=== PATIENT | male | born 1940 | race Caucasian/White ===

== ENCOUNTER 2016-09-25 18:21 | Observation (INO) | payer BC, MEDICARE ==
[2016-09-25] MEDS ORDERED: ASPIRIN 81 MG CHEWABLE TABLET PO ONE (18:42)
[2016-09-25 18:48] LABS: BASO % 0.8 % (0-6); EOS % 2.8 % (0-6); GRAN % 70.4 % (47-80); HEMATOCRIT 44.9 % (42.0-52.0); HEMOGLOBIN 14.9 gm/dl (14.0-18.0); LYMPH % 18.3 % (16-45); MEAN CELL VOLUME 94.3 fl (81-97); MEAN CORPUSCULAR HEMOGLOBIN 31.3 pg (27-33); MEAN CORPUSCULAR HGB CONC 33.2 g/dl (32-36); MEAN PLATELET VOLUME 9.7 fl (7.4-10.4); MONO % 7.7 % (0-9); PLATELET COUNT 224 K/uL (130-400); RED BLOOD COUNT 4.76 M/uL (4.40-5.70); RED CELL DISTRIBUTION WIDTH 14.4 % (11.5-14.5); WHITE BLOOD COUNT W/O DIFF 7.8 K/uL (4.2-12.2)
--- NOTE | 2016-09-25 18:48 | Emergency Department Record ---
History of Present Illness - General Chief Complaint: Chest Pain Stated Complaint: CHEST PAINS/BELGICA Time Seen by Provider: 09/25/16 18:41 Source: Patient Mode of Arrival: Ambulatory Limitations: No limitations - History of Present Illness Initial Comments: 76 yo male presents to ED with a CC of abdominal pain that has been resulting in chest pain and difficulty breathing symptoms for 1.5 weeks. Patient denies recent illness, fevers, chills, nausea, vomiting or change in stools. Patient does report history of CAD s/p CABG 3 years ago as well as COPD. Patient also reports history of CHF. Patient denies calf pain, swelling, or history of COPD. MD Complaint: Chest pain Onset/Timin -: Days(s) Onset: Other Pain Location: Substernal Pain Radiation: None Consistency: Intermittent Improves With: Nothing Worsens With: Nothing Treatments Prior to Arrival: None - Related Data Home Medications Medication Instructions Recorded Confirmed Last Taken Acetaminophen with Codeine 1 tab PO ASDIR PRN 09/25/16 09/25/16 Unknown [Tylenol with Codeine #3 Tablet] Amlodipine Besylate [Norvasc] 5 mg PO DAILY 09/25/16 09/25/16 Unknown Aspirin/Calcium Carbonate/Mag 325 mg PO DAILY 09/25/16 09/25/16 Unknown [Aspirin Buffered 325 mg Tab] Fluticasone/Vilanterol 100/25 1 puff INH RESP.Q12H 09/25/16 09/25/16 Unknown [Breo Ellipta 100-25 Mcg INH] Furosemide [Lasix] 20 mg PO DAILY 09/25/16 09/25/16 Unknown Latanoprost 0.005% Opth Nara 1 drop AFFEYE DAILY 09/25/16 09/25/16 Unknown [Xalatan] Magnesium Oxide [Mag Ox] 400 mg PO DAILY 09/25/16 09/25/16 Unknown Allergies Allergy/AdvReac Type Severity Reaction Status Date / Time carvedilol Allergy DIFFICULTY Verified 09/25/16 18:47 BREATHING celecoxib [From Celebrex] Allergy JOINT ACHES Verified 09/25/16 18:47 clonidine Allergy HIVES Verified 09/25/16 18:47 clopidogrel [From Plavix] Allergy PT UNSURE Verified 09/25/16 18:47 OF REACTION hydralazine Allergy HYPERSENSIT Verified 09/25/16 18:47 IVITY lisinopril Allergy DIFFICULTY Verified 09/25/16 18:48 BREATHING losartan Allergy JOINT ACHES Verified 09/25/16 18:47 naproxen Allergy JOINT ACHES Verified 09/25/16 18:47 nebivolol Allergy SWELLING Verified 09/25/16 18:47 (GENERAL) olmesartan Allergy JOINT ACHES Verified 09/25/16 18:47 rofecoxib [From Vioxx] Allergy RAPID Verified 09/25/16 18:47 HEART RATE ibuprofen AdvReac PT UNSURE Verified 09/25/16 18:47 OF REACTION Travel Screening - Travel/Exposure Within Last 30 Days Have you traveled within the last 30 days?: No Review of Systems Constitutional: Denies: Chills, Fever, Malaise, Night sweats Eyes: Denies: Eye discharge, Eye pain ENT: Denies: Congestion, Ear pain, Epistaxis Respiratory: Reports: Dyspnea. Denies: Cough Cardiovascular: Reports: Chest pain Endocrine: Denies: Fatigue, Heat or cold intolerance Gastrointestinal: Reports: Abdominal pain. Denies: Constipation, Diarrhea, Nausea, Vomiting Genitourinary: Denies: Incontinence, Retention Musculoskeletal: Denies: Arthralgia, Back pain, Gout, Joint swelling Skin: Denies: Bruising, Change in color Neurological: Denies: Abnormal gait, Confusion, Headache Psychiatric: Denies: Anxiety Hematological/Lymphatic: Denies: Anemia, Blood Clots Past Medical History - SOCIAL HISTORY Smoking Status: Former smoker Alcohol Use: None Drug Use: None - RESPIRATORY Hx Respiratory Disorders: Yes Hx COPD: Yes - CARDIOVASCULAR Hx Cardio Disorders: Yes Hx Abnormal EKG: Yes Hx CHF: Yes - NEURO Hx Neuro Disorders: No - GI Hx GI Disorders: No - Hx Genitourinary Disorders: No - ENDOCRINE Hx Endocrine Disorders: No - MUSCULOSKELETAL Hx Musculoskeletal Disorders: No - PSYCH Hx Psych Problems: No - HEMATOLOGY/ONCOLOGY Hx Hematology/Oncology Disorders: No Family Medical History Any Significant Family History?: No Physical Exam - General General Appearance: Alert, Oriented x3, Cooperative, Moderate distress Limitations: No limitations - Head Head exam: Atraumatic, Normocephalic, Normal inspection Head exam detail: negative: Abrasion, Contusion, South's sign, General tenderness, Hematoma, Laceration - Eye Eye exam: Other (Pinpoint pupil right, dialted pupil left (patient reports injury to the eye years ago s/p lens replacement)). negative: Conjunctival injection, Periorbital swelling, Periorbital tenderness, Scleral icterus - ENT Ear exam: negative: Auricular hematoma, Auricular trauma Nasal Exam: negative: Active bleeding, Discharge, Dried blood, Foreign body Mouth exam: negative: Drooling, Laceration, Muffled voice, Tongue elevation - Neck Neck exam: Normal inspection. negative: Meningismus, Tenderness - Respiratory Respiratory exam: Normal lung sounds bilaterally. negative: Respiratory distress, Rhonchi, Stridor, Wheezes - Cardiovascular Cardiovascular Exam: Regular rate, Normal rhythm, Normal heart sounds - GI/Abdominal GI/Abdominal exam: Soft. negative: Rebound, Rigid, Tenderness - Rectal Rectal exam: Deferred - exam: Deferred - Extremities Extremities exam: Normal inspection. negative: Calf tenderness, Pedal edema, Tenderness - Back Back exam: Denies: CVA tenderness (R), CVA tenderness (L) - Neurological Neurological exam: Alert, Normal gait, Oriented X3 - Psychiatric Psychiatric exam: Normal affect, Normal mood - Skin Skin exam: Normal color. negative: Abrasion Type of lesion: negative: abrasion Course Vital Signs 09/25/16 18:32 Temperature 98.2 F Pulse Rate 92 H Respiratory 24 Rate Blood Pressure 200/90 Pulse Ox 95 - Reevaluation(s) Reevaluation #1: 09/25/16 18:47 EKG: NSR 93 Indeterminate axis, normal intervals Nonspecific ST changes I, AVL, V5-V6 Reevaluation #2: 09/25/16 19:33 Labs reviewed, BNP 1100, labs are otherwise grossly unremarkable for an acute process. CTA pending at this time. Will continue to monitor. Reevaluation #3: 09/25/16 20:44 CTA Chest/Abdomen: No acute process, bilateral fat-containing inguinal hernias. Patient and family were updated on all results, will admit for further cardiac evaluation. Reevaluation #4: 09/25/16 21:02 Case was discussed with Dana STATON, will accept admission for CHF exacerbation and r/o RI. Medical Decision Making - Lab Data Result diagrams: 09/25/16 18:35 09/25/16 18:35 Disposition Disposition: Admit Clinical Impression: CHF (congestive heart failure) Qualifiers: Congestive heart failure type: unspecified congestive heart failure type Congestive heart failure chronicity: acute on chronic Qualified Code(s): I50.9 - Heart failure, unspecified Chest pain Qualifiers: Chest pain type: unspecified Qualified Code(s): R07.9 - Chest pain, unspecified Disposition: Still a Patient at [facility] Decision to Admit: Admit from ER Decision to Admit Date: 09/25/16 Decision to Admit Time: 21:04 Condition: (2) Stable Time of Disposition: 21:04 Quality - Quality Measures Quality Measures: N/A - Blood Pressure Screening Blood Pressure Classification: Pre-Hypertensive BP Reading Systolic Measurement: 165 Diastolic Measurement: 83 Screening for High Blood Pressure: < Pre-Hypertensive BP, F/U Documented > [ [id number]] Pre-Hypertensive Follow-up Interventions: Referral to alternative/primary care provider.
[2016-09-25 19:01] LABS: ALB/GLOB RATIO 1.1 (1.1-1.8); ALBUMIN 4.7 gm/dL (3.5-5.0); ALKALINE PHOSPHATASE 86 U/L (38-126); ALT/SGPT 58 U/L (21-72); ANION GAP 12.7 (7-16); AST/SGOT 45 U/L (17-59); BILIRUBIN,TOTAL 1.09 mg/dL (0.2-1.3); BLOOD UREA NITROGEN 19 mg/dL (9-20); CARBON DIOXIDE 27.3 mmol/L (22-30); CREATINE PHOSPHOKINASE 103 U/L (55-170); CREATININE 1.1 mg/dL (0.66-1.25); EST GLOMERULAR FILTRATION RATE > 60 ml/min; GLUCOSE,RANDOM 116 mg/dL (70-110)
[2016-09-25 19:13] LABS: CKMB 3.3 ug/L (0-6)
[2016-09-25 19:14] LABS: TROPONIN I < 0.012 ng/mL (0.00-0.034)
[2016-09-25] MEDS ORDERED: ACETAMINOPHEN W/ CODEINE 300MG/30MG TABLET PO PRN ×3 (22:41→23:15)
[2016-09-25] MEDS ORDERED: LATANOPROST 0.005% OPTH SOLUTION 2.5ML BOTTLE OPTH SCH (23:20)
[2016-09-25] MEDS ORDERED: DIPHENHYDRAMINE HCL 25 MG CAPSULE PO PRN (23:32)
--- NOTE | 2016-09-26 07:35 | History & Physical ---
History of Present Illness - Date of Service Date of Service for History & Physical: 09/26/16 - History of Present Illness Admitting Diagnosis: abdominal pain History of Present Illness: 76yo male with CC of abdominal cramping. He has a history of severe coronary artery disease, peripheral artery disease, CABG x3 3 years ago, CHF, HTN, COPD and arthritis. Patient presented to the ED with chronic abdominal cramping. States this started back in March of this year and has been getting steadily worse since that time. Stated the last 1-2 weeks the cramping has been significant and he says the pain caused him to feel short of breath at times and felt like the pain radiated upwards across his chest. He decided to come to the ED because he felt it was time to get this figured out. While in the ED, patient had an EKG which showed changes consistent with old infarcts. No previous available for comparison. 1st set of cardiac enzymes was wnl range. CBC and CMP were unremarkable. His BNP was noted to be 1100. no pedal edema on exam. he underwent Chest CT which showed severe calcifications in the coronary arteries and an area of consolidation in the RLL that could be atelectasis vs infiltrate. He also underwent CT abdomen and pelvis which showed significant aortiliac calcifications but no acute process. Patient was admitted for serial enzymes. 09/26/16- patient states he is feeling much better. He says the generalized abdominal cramping has improved significantly. His shortness of breath and chest discomfort resolved last evening and he has had no further episodes. He denies headache, numbness, tingling, weakness, cough, nausea/vomiting, diarrhea or constipation. Patient states he is feeling fine and is ready to go home. He states "I was ready to go this morning" after echo was completed. Patient currently follows with Dr. Mccray for primary care but is not very compliant. He has not seen his retail furniture sales Dr. Mayo since February 2015. He has low health literacy and understanding of his medical conditions. He reports not wanting to take medications in the past because he didn't feel he needed them. prefers to use homeopathic medications for his cholesterol and refuses to take a statin. Feels his amlodopine is causing his abdominal cramping because he read that in the package insert. He has been on the amlodopine for about 9 months now. Could not tolerate ACEI/ARBs due to joint pains. He thinks his last stress test was before his shoulder surgery about 2 years ago. He cannot recall last time he had echo done. He last saw his manufacturer's service representative Dr. Healy (Bang) in May when she "cleaned out my right lung." He states he had a procedure done to remove mucus from the right lower portion of his lung. He says he has follow up with her again in November. he does report baseline mucus production but has not had increased cough, shortness of breath, fever or fatigue. Travel Screening - Travel/Exposure Within Last 30 Days Have you traveled within the last 30 days?: No - Travel/Exposure Within Last Year Have you traveled outside the [place] in the last year?: No - Additonal Travel Details Have you been exposed to anyone with a communicable illness?: No - Travel Symptoms Symptom Screening: None Review of Systems Constitutional: Denies: Chills, Fever, Malaise, Night sweats Eyes: Denies: Eye discharge, Eye pain ENT: Denies: Congestion, Ear pain, Epistaxis Respiratory: Denies: Cough, Dyspnea Cardiovascular: Denies: Chest pain Endocrine: Denies: Fatigue, Heat or cold intolerance Gastrointestinal: Reports: Abdominal pain (cramping, diffuse). Denies: Constipation, Diarrhea, Nausea, Vomiting Genitourinary: Denies: Incontinence, Retention Musculoskeletal: Denies: Arthralgia, Back pain, Gout, Joint swelling Skin: Denies: Bruising, Change in color Neurological: Denies: Abnormal gait, Confusion, Headache Psychiatric: Denies: Anxiety Hematological/Lymphatic: Denies: Anemia, Blood Clots Past Medical History - SOCIAL HISTORY Smoking Status: Former smoker Alcohol Use: None Drug Use: None - RESPIRATORY Hx Respiratory Disorders: Yes Hx COPD: Yes - CARDIOVASCULAR Hx Cardio Disorders: Yes Hx Abnormal EKG: Yes Hx CHF: Yes - NEURO Hx Neuro Disorders: No - GI Hx GI Disorders: No - Hx Genitourinary Disorders: No - ENDOCRINE Hx Endocrine Disorders: No - MUSCULOSKELETAL Hx Musculoskeletal Disorders: No - PSYCH Hx Psych Problems: No - HEMATOLOGY/ONCOLOGY Hx Hematology/Oncology Disorders: No Family Medical History Any Significant Family History?: No H&P Meds/Allergies - Allergies Allergies: Allergies Allergy/AdvReac Type Severity Reaction Status Date / Time carvedilol Allergy DIFFICULTY Verified 09/25/16 18:47 BREATHING celecoxib [From Celebrex] Allergy JOINT ACHES Verified 09/25/16 18:47 clonidine Allergy HIVES Verified 09/25/16 18:47 clopidogrel [From Plavix] Allergy PT UNSURE Verified 09/25/16 18:47 OF REACTION hydralazine Allergy HYPERSENSIT Verified 09/25/16 18:47 IVITY lisinopril Allergy DIFFICULTY Verified 09/25/16 18:48 BREATHING losartan Allergy JOINT ACHES Verified 09/25/16 18:47 naproxen Allergy JOINT ACHES Verified 09/25/16 18:47 nebivolol Allergy SWELLING Verified 09/25/16 18:47 (GENERAL) olmesartan Allergy JOINT ACHES Verified 09/25/16 18:47 rofecoxib [From Vioxx] Allergy RAPID Verified 09/25/16 18:47 HEART RATE ibuprofen AdvReac PT UNSURE Verified 09/25/16 18:47 OF REACTION - Home Medications Home Medications Medication Instructions Recorded Confirmed Last Taken Acetaminophen with Codeine 1 tab PO ASDIR PRN 09/25/16 09/25/16 Unknown [Tylenol with Codeine #3 Tablet] Amlodipine Besylate [Norvasc] 5 mg PO DAILY 09/25/16 09/25/16 Unknown Aspirin/Calcium Carbonate/Mag 325 mg PO DAILY 09/25/16 09/25/16 Unknown [Aspirin Buffered 325 mg Tab] Fluticasone/Vilanterol 100/25 1 puff INH RESP.Q12H 09/25/16 09/25/16 Unknown [Breo Ellipta 100-25 Mcg INH] Furosemide [Lasix] 20 mg PO DAILY 09/25/16 09/25/16 Unknown Latanoprost 0.005% Opth Nara 1 drop AFFEYE DAILY 09/25/16 09/25/16 Unknown [Xalatan] Magnesium Oxide [Mag Ox] 400 mg PO DAILY 09/25/16 09/25/16 Unknown - Active Medications Active Medications: Current Medications Acetaminophen/Codeine Phosphate (Tylenol #3) 1 udtab PO Q4H PRN PRN Reason: Pain - Mild (1-4) Last Admin: 09/25/16 23:56 Dose: 1 udtab Acetaminophen/Codeine Phosphate (Tylenol #3) 2 udtab PO Q4H PRN PRN Reason: Pain - Moderate (5-7) Last Admin: 09/26/16 04:42 Dose: 2 udtab Aspirin (Ecotrin (Ec)) 325 mg PO DAILY [facility] Calcium Carbonate/Glycine (Tums) 500 mg PO DAILY [facility] Diphenhydramine HCl (Benadryl Capsule) 25 mg PO Q6H PRN PRN Reason: SLEEP Last Admin: 09/25/16 23:53 Dose: 25 mg Furosemide (Lasix) 20 mg PO DAILY [facility] Latanoprost (Xalatan) 1 drop OPTH QHS GRZEGORZ Last Admin: 09/25/16 23:26 Dose: 1 drop Magnesium Oxide (Mag Ox) 400 mg PO DAILY [facility] Physical Exam - Vital Signs Vital Signs: Vital Signs - Last 24 Hrs Temp Pulse Pulse Resp BP BP Pulse Ox 09/26/16 06:00 98.0 F 67 18 151/79 95 09/26/16 02:00 97.8 F 83 16 173/88 97 09/25/16 22:41 98.4 F 83 20 179/104 96 09/25/16 22:09 74 22 165/83 94 L - General General Appearance: Alert, Oriented x3, Cooperative, No acute distress Limitations: No limitations - Head Head exam: Atraumatic, Normocephalic, Normal inspection Head exam detail: negative: Abrasion, Contusion, South's sign, General tenderness, Hematoma, Laceration - Eye Eye exam: Other (Pinpoint pupil right, dialted pupil left (patient reports injury to the eye years ago s/p lens replacement)). negative: Conjunctival injection, Periorbital swelling, Periorbital tenderness, Scleral icterus - ENT Ear exam: negative: Auricular hematoma, Auricular trauma Nasal Exam: negative: Active bleeding, Discharge, Dried blood, Foreign body Mouth exam: negative: Drooling, Laceration, Muffled voice, Tongue elevation - Neck Neck exam: Normal inspection. negative: Meningismus, Tenderness - Respiratory Respiratory exam: Normal lung sounds bilaterally. negative: Accessory muscle use, Respiratory distress, Rhonchi, Stridor, Wheezes - Cardiovascular Cardiovascular Exam: Regular rate, Normal rhythm, Normal heart sounds - GI/Abdominal GI/Abdominal exam: Soft. negative: Rebound, Rigid, Tenderness - Rectal Rectal exam: Deferred - exam: Deferred - Extremities Extremities exam: Normal inspection. negative: Calf tenderness, Pedal edema, Tenderness - Back Back exam: Denies: CVA tenderness (R), CVA tenderness (L) - Neurological Neurological exam: Alert, Normal gait, Oriented X3 - Psychiatric Psychiatric exam: Normal affect, Normal mood - Skin Skin exam: Normal color. negative: Abrasion Type of lesion: negative: abrasion Results - Labs Result Diagrams: 09/26/16 08:13 09/26/16 08:13 Labs Last 24 Hours: Laboratory Results - last 24 hr 09/26/16 03:05 Troponin I 0.012 - Imaging and Cardiology CT scan - chest Status: Report reviewed (severe CAD and RLL consolidation) CT scan - abdomen Status: Report reviewed (no acute process) VTE H&P Assessment - Risk for VTE Risk for VTE: Yes Risk Level: High Risk Assessment Date: 09/26/16 Risk Assessment Time: 21:40 VTE Orders Placed or Will Be Placed: Yes Plan - Detailed Diagnosis and Plan (1) Abdominal pain Status: Acute Qualifiers: Abdominal location: generalized Qualified Code(s): R10.84 - Generalized abdominal pain Base Code: R10.9 - UNSPECIFIED ABDOMINAL PAIN Comment: 09/26/16- Improved. generalized abdominal cramping occurring after eating x7 months. CMP was unremarkable. Abdomen/pelvis CT showed no acute process, but did reveal significant aortilliac calcifications.This pain culd possible be related to abdominal angina with patient's known CAD and PAD. Patient is currently tolerating full diet with regular bowel movements and has not needed pain control. all three sets of CE returned wnl. EKG remains unchanged. -will plan to discharge home today. Patient has follow up scheduled with Dr. Mccray on sunday10/02/16. -he will be scheduled with [facility] at [facility] specialty clinic ja. He will likely need referral to vascular surgery based on cardiology evaluation -counseled patient on reasons to return to the Ed including new/worsening symptoms such as severe abdominal pain, inability to tolerate po fluids, change in bowel habits, fever, or chest pain. Daughter and patient voiced their understanding. (2) Coronary arteriosclerosis Status: Acute Base Code: I25.10 - ATHSCL HEART DISEASE OF [place] CORONARY ARTERY W/O ANG PCTRS Comment: 09/26/16- CT chest shows severe CAD. patient reports being told this information many years ago. He has not been compliant with cardiology follow up or medication recommendations. No evidence of acute coronary syndrome at this time, but I counseled patient x10 minutes on importance of close follow up [facility]ology and medication adherence for risk reduction. -Daughter agrees to take patient to cardiology follow up appointment -will get him scheduled with specialty clinic here at [facility] with [facility] cardiology. Nursing to call and schedule and will contact patient and/or daughter (3) CHF (congestive heart failure) Status: Acute Qualifiers: Congestive heart failure type: unspecified congestive heart failure type Congestive heart failure chronicity: acute on chronic Qualified Code(s): I50.9 - Heart failure, unspecified Base Code: I50.9 - HEART FAILURE, UNSPECIFIED Comment: 09/26/16- Patient underwent echocardiogram today which showed EF of 61% with normal wall movement and aortic stenosis. BNP was elevated at [address] chest showed no evidence of fluid overload and patient is currently asymptomatic with no pedal edema or shortness of breath. -patient understands he needs close follow up [facility] cardiology as it has been 1.5 years since last seen. [facility] -continue lasix 20mg po daily. potassium wnl range -patient refuses ACEI/ARb stating he had adverse reaction to these medications -patient refuses statin due to adverse reactions (4) Atelectasis Status: Acute Base Code: J98.11 - ATELECTASIS Comment: 09/26/16- CT chest showed consolidation in the RLL consistent with atelectasis vs infiltrate. Clinically, patient is without symptoms of pneumonia. he denies increased cough or sputum production from baseline. no fevers, chills, wbc count remains wnl. He follows with pulmonlogy, Dr. Healy, at [facility] and seems to have undergone routine bronchoscopy with suction for this in May. He currently has appointment with Dr. Healy in november. -Daughter will call her office to see if patient can have appointment moved up or be placed on cancellation list. -counseled patient x5 minutes on signs/symptoms of pneumonia and that he is to return to ED at any time if he begins to experience these. Both patient and daughter voiced their understanding. -patient will continue to use incentive spirometer that he has at home (5) Full code status Status: Acute Base Code: Z78.9 - OTHER SPECIFIED HEALTH STATUS Comment: 09/26- patient is full code (6) DVT prophylaxis Status: Acute Base Code: [id number] - Comment: 09/26/16- patient high risk -will add lvoenox 40mg sq daily
--- NOTE | 2016-09-26 07:47 | CT SCAN REPORT ---
EXAM: CHEST CT WITH IV CONTRAST HISTORY: ACUTE DIFFICULTY BREATHING FOR ONE AND A HALF WEEKS. HISTORY OF CORONARY ARTERY BYPASS. TECHNIQUE: Contiguous axial images from the thoracic inlet to the upper abdomen were obtained after the uneventful intravenous administration of 100 ml of Omnipaque 300. Comparison: Chest x-ray 10/17/07. FINDINGS: There is consolidative change in the right lower lobe posteriorly measuring up to 7.4 x 3.0 cm in the coronal plane. Calcified granulomata in the left upper lobe. The left lung is grossly clear. No pleural effusion. The central airways are patent. The heart is moderately enlarged, but there is no pericardial effusion. Severe coronary artery calcification. No enlarged lymph nodes in the thorax. Moderate calcification of the thoracic aorta with no thoracic aortic dissection. There is chronic elevation of the right hemidiaphragm. Decreased attenuation throughout the liver consistent with fatty infiltration. No fractures. No lytic or blastic osseous lesion. IMPRESSION: 1. CONSOLIDATIVE CHANGE IN THE RIGHT LOWER LOBE MEASURING UP TO 7 CM WHICH COULD RELATE TO ATELECTASIS OR PNEUMONIA. 2. CARDIOMEGALY WITH SEVERE CORONARY ARTERY CALCIFICATION. 3. OLD GRANULOMATOUS DISEASE. 4. ELEVATED RIGHT HEMIDIAPHRAGM. ADDENDUM: There is an 8 mm noncalcified nodule as well in the right upper lobe. If there are no studies documenting long term care pharmacist stability, I would recommend a six month follow-up chest CT. JOB NUMBER: [id number] [facility]
--- NOTE | 2016-09-26 07:57 | CT SCAN REPORT ---
EXAM: ABDOMEN AND PELVIS CT WITH IV CONTRAST HISTORY: GENERALIZED ABDOMINAL CRAMPING, CHEST PAIN FOR TEN DAYS. TECHNIQUE: Contiguous axial images from the lung bases to the symphysis pubis were obtained after the uneventful intravenous administration of 100 ml of Omnipaque 300. Comparison: Abdomen and pelvis CT 06/23/11. FINDINGS: Focal consolidative change in the right lower lobe with air bronchograms measuring up to 7 cm. Elevated right hemidiaphragm. Decreased attenuation throughout the liver consistent with steatosis. The spleen is unremarkable. There are unilocular cysts within the kidneys bilaterally the largest in the interpolar region measuring 2.8 cm. Renal vascular calcification. The adrenals and pancreas are normal. The gallbladder is normal. The visualized loops of small and large bowel are of normal caliber. No wall thickening. Moderate fecal material throughout the colon. Normal appendix. There is severe aortoiliac calcification. No free intraperitoneal fluid or adenopathy. The prostate gland is mildly enlarged with coarse central calcifications. There is a small fat containing inguinal hernia. The osseous structures reveal no lytic or blastic lesion. IMPRESSION: 1. NO ACUTE PROCESS OF THE ABDOMEN OR PELVIS. 2. SEVERE AORTIC CALCIFICATION. 3. HEPATIC STEATOSIS. 4. BENIGN BOSNIAK TYPE 1 RENAL CYSTS. 5. SMALL FAT CONTAINING INGUINAL HERNIAS. 6. MILD ENLARGEMENT OF THE PROSTATE GLAND LIKELY DUE TO BPH. J[facility]BER: [id number] [facility]
[2016-09-26 08:29] LABS: BASO % 0.5 % (0-6); EOS % 3.2 % (0-6); GRAN % 70.1 % (47-80); HEMATOCRIT 41.4 % (42.0-52.0); HEMOGLOBIN 13.7 gm/dl (14.0-18.0); LYMPH % 16.1 % (16-45); MEAN CELL VOLUME 96.3 fl (81-97); MEAN CORPUSCULAR HGB CONC 33.1 g/dl (32-36); MEAN PLATELET VOLUME 9.8 fl (7.4-10.4); MONO % 10.1 % (0-9); PLATELET COUNT 190 K/uL (130-400); RED CELL DISTRIBUTION WIDTH 14.2 % (11.5-14.5); WHITE BLOOD COUNT W/O DIFF 6.6 K/uL (4.2-12.2)
[2016-09-26 08:30] LABS: MEAN CORPUSCULAR HEMOGLOBIN 31.8 pg (27-33)
[2016-09-26 08:39] LABS: ALB/GLOB RATIO 1.1 (1.1-1.8); ALKALINE PHOSPHATASE 66 U/L (38-126); ALT/SGPT 55 U/L (21-72); ANION GAP 8.5 (7-16); AST/SGOT 30 U/L (17-59); BILIRUBIN,TOTAL 0.94 mg/dL (0.2-1.3); BLOOD UREA NITROGEN 19 mg/dL (9-20); CARBON DIOXIDE 30.5 mmol/L (22-30); CREATININE 1.1 mg/dL (0.66-1.25); EST GLOMERULAR FILTRATION RATE > 60 ml/min; GLUCOSE,RANDOM 111 mg/dL (70-110); TOTAL PROTEIN 7.6 gm/dL (6.3-8.2)
[2016-09-26] MEDS ORDERED: CALCIUM CARBONATE 500 MG TAB.CHEW PO SCH (10:00)
[2016-09-26] MEDS ORDERED: MAGNESIUM OXIDE 400 MG TABLET PO SCH (10:00)
[2016-09-26] MEDS ORDERED: ASPIRIN 325 MG TAB ENTERIC-COATED PO SCH (10:00)
[2016-09-26] MEDS ORDERED: BREO (FLUTICASONE/VILANTEROL) 100MCG/25MCG INHALER INH SCH (10:00)
[2016-09-26] MEDS ORDERED: LATANOPROST 0.005% OPTH SOLUTION 2.5ML BOTTLE OPTH SCH (10:00)
[2016-09-26] MEDS ORDERED: FUROSEMIDE 20 MG TABLET PO SCH (10:00)
[2016-09-26] MEDS ORDERED: AMLODIPINE BESYLATE 5MG TAB PO SCH (10:30)
[2016-09-26] MEDS ORDERED: FLUTICASONE/SALMETEROL 250/50 DISKUS INH SCH (11:26)
--- NOTE | 2016-09-26 17:25 | Discharge Summary ---
Providers Discharge Summary Date: 09/26/16 Date of admission: 09/25/16 22:03 Expected Date of Discharge: 09/26/16 Attending physician: LEILA DUCKWORTH Primary care physician: ANTHONY MCCRAY M.D. Physical Exam - Vital Signs Vital Signs: Vital Signs - Last 24 Hrs Temp Pulse Pulse Pulse Resp BP BP 09/26/16 14:00 84 16 158/93 09/26/16 09:55 97 F L 83 16 183/86 09/26/16 09:00 83 100 H 16 09/26/16 06:00 98.0 F 67 18 151/79 09/26/16 02:00 97.8 F 83 16 173/88 09/25/16 22:41 98.4 F 83 20 179/104 09/25/16 22:09 74 22 165/83 Pulse Ox 09/26/16 14:00 96 09/26/16 09:55 100 09/26/16 09:00 09/26/16 06:00 95 09/26/16 02:00 97 09/25/16 22:41 96 09/25/16 22:09 94 L - General General Appearance: Alert, Oriented x3, Cooperative, Moderate distress Limitations: No limitations - Head Head exam: Atraumatic, Normocephalic, Normal inspection Head exam detail: negative: Abrasion, Contusion, South's sign, General tenderness, Hematoma, Laceration - Eye Eye exam: Other (Pinpoint pupil right, dialted pupil left (patient reports injury to the eye years ago s/p lens replacement)). negative: Conjunctival injection, Periorbital swelling, Periorbital tenderness, Scleral icterus - ENT Ear exam: negative: Auricular hematoma, Auricular trauma Nasal Exam: negative: Active bleeding, Discharge, Dried blood, Foreign body Mouth exam: negative: Drooling, Laceration, Muffled voice, Tongue elevation - Neck Neck exam: Normal inspection. negative: Meningismus, Tenderness - Respiratory Respiratory exam: Normal lung sounds bilaterally. negative: Respiratory distress, Rhonchi, Stridor, Wheezes - Cardiovascular Cardiovascular Exam: Regular rate, Normal rhythm, Normal heart sounds - GI/Abdominal GI/Abdominal exam: Soft. negative: Rebound, Rigid, Tenderness - Rectal Rectal exam: Deferred - exam: Deferred - Extremities Extremities exam: Normal inspection. negative: Calf tenderness, Pedal edema, Tenderness - Back Back exam: Denies: CVA tenderness (R), CVA tenderness (L) - Neurological Neurological exam: Alert, Normal gait, Oriented X3 - Psychiatric Psychiatric exam: Normal affect, Normal mood - Skin Skin exam: Normal color. negative: Abrasion Type of lesion: negative: abrasion Hospitalization - Hospitalization Admission Diagnosis: Chest pain. Acute on Chronic CHF - Problem List/Discharge Diagnosis (1) Abdominal pain Status: Acute Discharge Diagnosis: Abdominal location: generalized Qualified Code(s): R10.84 - Generalized abdominal pain Base Code: R10.9 - UNSPECIFIED ABDOMINAL PAIN Comment: 09/26/16- Improved. generalized abdominal cramping occurring after eating x7 months. CMP was unremarkable. Abdomen/pelvis CT showed no acute process, but did reveal significant aortilliac calcifications.This pain culd possible be related to abdominal angina with patient's known CAD and PAD. Patient is currently tolerating full diet with regular bowel movements and has not needed pain control. all three sets of CE returned wnl. EKG remains unchanged. -will plan to discharge home today. Patient has follow up scheduled with Dr. Mccray on sunday10/02/16. -he will be scheduled with [facility] at [facility] specialty clinic [facility]. He will likely need referral to vascular surgery based on cardiology evaluation -counseled patient on reasons to return to the Ed including new/worsening symptoms such as severe abdominal pain, inability to tolerate po fluids, change in bowel habits, fever, or chest pain. Daughter and patient voiced their understanding. (2) Coronary arteriosclerosis Status: Acute Base Code: I25.10 - ATHSCL HEART DISEASE OF [place] CORONARY ARTERY W/O ANG PCTRS Comment: 09/26/16- CT chest shows severe CAD. patient reports being told this information many years ago. He has not been compliant with cardiology follow up or medication recommendations. No evidence of acute coronary syndrome at this time, but I counseled patient x10 minutes on importance of close follow up [facility] cardiology and medication adherence for risk reduction. -Daughter agrees to take patient to cardiology follow up appointment -will get him scheduled with specialty clinic here at [facility] with [facility]. Nursing to call and schedule and will contact patient and/or daughter (3) CHF (congestive heart failure) Status: Acute Discharge Diagnosis: Congestive heart failure type: unspecified congestive heart failure type Congestive heart failure chronicity: acute on chronic Qualified Code(s): I50.9 - Heart failure, unspecified Base Code: I50.9 - HEART FAILURE, UNSPECIFIED Comment: 09/26/16- Patient underwent echocardiogram today which showed EF of 61% with normal wall movement and aortic stenosis. BNP was elevated at [address] chest showed no evidence of fluid overload and patient is currently asymptomatic with no pedal edema or shortness of breath. -patient understands he needs close follow up [facility] cardiology as it has been 1.5 years since last seen. Nursing will schedule him [facility] specialty clinic ja. -continue lasix 20mg po daily. potassium wnl range -patient refuses ACEI/ARb stating he had adverse reaction to these medications -patient refuses statin due to adverse reactions (4) Atelectasis Status: Acute Base Code: J98.11 - ATELECTASIS Comment: 09/26/16- CT chest showed consolidation in the RLL consistent with atelectasis vs infiltrate. Clinically, patient is without symptoms of pneumonia. he denies increased cough or sputum production from baseline. no fevers, chills, wbc count remains wnl. He follows with pulmonlogy, Dr. Healy, at [facility] and seems to have undergone routine bronchoscopy with suction for this in May. He currently has appointment with Dr. Healy in november. -Daughter will call her office to see if patient can have appointment moved up or be placed on cancellation list. -counseled patient x5 minutes on signs/symptoms of pneumonia and that he is to return to ED at any time if he begins to experience these. Both patient and daughter voiced their understanding. -patient will continue to use incentive spirometer that he has at home (5) DVT prophylaxis Status: Acute Base Code: [id number] - Comment: 09/26/16- patient high risk -will add lvoenox 40mg sq daily (6) Full code status Status: Acute Base Code: Z78.9 - OTHER SPECIFIED HEALTH STATUS Comment: 09/26- patient is full code - Hospitalization Course Disposition: Home, Self-Care Hospital Course: 76yo male with CC of abdominal cramping. He has a history of severe coronary artery disease, peripheral artery disease, CABG x3 3 years ago, CHF, HTN, COPD and arthritis. Patient presented to the ED with chronic abdominal cramping. States this started back in March of this year and has been getting steadily worse since that time. Stated the last 1-2 weeks the cramping has been significant and he says the pain caused him to feel short of breath at times and felt like the pain radiated upwards across his chest. He decided to come to the ED because he felt it was time to get this figured out. While in the ED, patient had an EKG which showed changes consistent with old infarcts. No previous available for comparison. 1st set of cardiac enzymes was wnl range. CBC and CMP were unremarkable. His BNP was noted to be 1100. no pedal edema on exam. he underwent Chest CT which showed severe calcifications in the coronary arteries and an area of consolidation in the RLL that could be atelectasis vs infiltrate. He also underwent CT abdomen and pelvis which showed significant aortiliac calcifications but no acute process. Patient was admitted for serial enzymes. 09/26/16- patient states he is feeling much better. He says the generalized abdominal cramping has improved significantly. His shortness of breath and chest discomfort resolved last evening and he has had no further episodes. He denies headache, numbness, tingling, weakness, cough, nausea/vomiting, diarrhea or constipation. Patient currently follows with Dr. Mccray for primary care but is not very compliant. He has not seen his jet wiper Dr. Mayo since February 2015. He has low health literacy and understanding of his medical conditions. He reports not wanting to take medications in the past because he didn't feel he needed them. prefers to use homeopathic medications for his cholesterol and refuses to take a statin. Feels his amlodopine is causing his abdominal cramping because he read that in the package insert. He has been on the amlodopine for about 9 months now. Could not tolerate ACEI/ARBs due to joint pains. He thinks his last stress test was before his shoulder surgery about 2 years ago. He cannot recall last time he had echo done. He last saw his back end developer Dr. Healy (Bang) in May when she "cleaned out my right lung." He states he had a procedure done to remove mucus from the right lower portion of his lung. He says he has follow up with her again in November. he does report baseline mucus production but has not had increased cough, shortness of breath, fever or fatigue. Abnormal Labs: Abnormal Lab Results 09/26/16 09/26/16 Range/Units 08:13 08:13 RBC 4.30 L (4.40-5.70) M/uL Hgb 13.7 L (14.0-18.0) gm/dl Hct 41.4 L (42.0-52.0) % Monocytes % 10.1 H (0-9) % Carbon Dioxide 30.5 H (22-30) mmol/L Random Glucose 111 H (70-110) mg/dL Condition at Discharge: (2) Stable Discharge Medications - Discharge Medications Home Medications: Ambulatory Orders Acetaminophen with Codeine [Tylenol with Codeine #3 Tablet] 1 tab PO ASDIR PRN 09/25/16 [Last Taken Unknown] Amlodipine Besylate [Norvasc] 5 mg PO DAILY 09/25/16 [Last Taken Unknown] Aspirin/Calcium Carbonate/Mag [Aspirin Buffered 325 mg Tab] 325 mg PO DAILY [Last Taken Unknown] Fluticasone/Vilanterol 100/25 [Breo Ellipta 100-25 Mcg INH] 1 puff INH RESP.Q12H 09/25/16 [Last Taken Unknown] Furosemide [Lasix] 20 mg PO DAILY 09/25/16 [Last Taken Unknown] Latanoprost 0.005% Opth Nara [Xalatan] 1 drop AFFEYE DAILY 09/25/16 [Last Taken Unknown] Magnesium Oxide [Mag Ox] 400 mg PO DAILY 09/25/16 [Last Taken Unknown] Discharge Plan - Discharge Instructions Activity at Discharge: Resume Usual Activities As Tolerated Instructions: Chest Pain (DC) Additional Instructions: Appointment with Dr. Mccray SundayOctober 02, 4:00 PM. We will contact you tomorrow with cardiology appointment date and time Please call with any questions or concerns Return to ED with any new or worsening concerns
[2016-09-27] MEDS ORDERED: FLUTICASONE/SALMETEROL 250/50 DISKUS INH SCH (06:00)
== END 2016-09-26 17:54 | disposition home or self-care (01) ==
LOC: ER 18:21 → MEDSURG 22:03
PROVIDERS: ADMIT Family Medicine; ATTEND Family Medicine
DX: R10.84 Generalized abdominal pain (principal); I50.9 Heart failure, unspecified; I25.10 Atherosclerotic heart disease of native coronary artery without angina pectoris; J98.11 Atelectasis; I10 Essential (primary) hypertension; J44.9 Chronic obstructive pulmonary disease, unspecified
CPT/HCPCS: 93041; 99285 ×2; 94760; 82550; 85025 ×2; 82553; 84484 ×2; 80053 ×2; 83880; 71260; 74177; 93005 ×2; 93010 ×2; G0378 ×2; Q9967; 99220

== ENCOUNTER 2017-07-20 13:27 | Emergency (ER) | payer MEDICARE ==
--- NOTE | 2017-07-20 13:46 | Emergency Department Record ---
History of Present Illness - General Chief complaint: Extremity Problem Stated complaint: SWELLING ON BOTH FEET AND TOENAIL COMING OFF Time Seen by Provider: 07/20/17 13:33 Source: Patient Mode of Arrival: his own 4 wheel walker - History of Present Illness Initial comments: 77 yo male presents with a concern about his right great toe. He states it has been red, painful, and draining over the last 2 weeks. No fever. No spreading redness. He has had mild bilateral feet swelling for a few weeks as well. He has not seen his doctor (Mahendra) in many months. The right great toe has chronically been thickened. The redness is new. No numbness or coolness. He denies chest pain or cough. No shortness of breath. 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 The right great toe nail is loose and nearly off. Onset/Timin -: Week(s) Location: Bilateral, Foot Severity scale (1-10): 10 Quality: Sharp Consistency: Intermittent Improves with: Nothing Worsens with: Nothing Associated Symptoms: Arthralgias - Related Data Home Medications Medication Instructions Recorded Confirmed Last Taken Fexofenadine HCl [Mucinex Allergy] 180 mg PO DAILY 07/20/17 07/20/17 1 Day Ago ~07/19/17 Fluticasone/Salmeterol [Advair 1 each IH BID 07/20/17 07/20/17 1 Day Ago 250-50 Diskus] ~07/19/17 Previous Rx's Medication Instructions Recorded Cephalexin [Keflex] 500 mg PO TID #21 cap 07/20/17 Allergies Allergy/AdvReac Type Severity Reaction Status Date / Time carvedilol Allergy DIFFICULTY Verified 07/20/17 13:41 BREATHING celecoxib [From Celebrex] Allergy JOINT ACHES Verified 07/20/17 13:41 clonidine Allergy HIVES Verified 07/20/17 13:41 clopidogrel [From Plavix] Allergy PT UNSURE Verified 07/20/17 13:41 OF REACTION hydralazine Allergy HYPERSENSIT Verified 07/20/17 13:41 IVITY lisinopril Allergy DIFFICULTY Verified 07/20/17 13:41 BREATHING losartan Allergy JOINT ACHES Verified 07/20/17 13:41 naproxen Allergy JOINT ACHES Verified 07/20/17 13:41 nebivolol Allergy SWELLING Verified 07/20/17 13:41 (GENERAL) olmesartan Allergy JOINT ACHES Verified 07/20/17 13:41 rofecoxib [From Vioxx] Allergy RAPID Verified 07/20/17 13:41 HEART RATE ibuprofen AdvReac PT UNSURE Verified 07/20/17 13:41 OF REACTION Travel Screening - Travel/Exposure Within Last 30 Days Have you traveled within the last 30 days?: No - Travel/Exposure Within Last Year Have you traveled outside the [place] in the last year?: No - Additonal Travel Details Have you been exposed to anyone with a communicable illness?: No - Travel Symptoms Symptom Screening: None Review of Systems Constitutional: Denies: Chills, Fever, Weakness Eyes: Denies: Eye discharge ENT: Denies: Congestion, Throat pain Respiratory: Denies: Cough, Dyspnea, Hemoptysis, Stridor, Wheezes Cardiovascular: Denies: Chest pain, Palpitations, Syncope Endocrine: Denies: Fatigue, Polydipsia, Polyuria Gastrointestinal: Denies: Abdominal pain, Diarrhea, Nausea, Vomiting Genitourinary: Denies: Dysuria, Frequency, Hematuria Musculoskeletal: Reports: As per HPI, Arthralgia, Joint swelling. Denies: Back pain, Myalgia Skin: Reports: As per HPI, Change in color. Denies: Bruising, Rash Neurological: Denies: Headache, Numbness, Weakness Psychiatric: Denies: Anxiety Hematological/Lymphatic: Denies: Easy bleeding, Easy bruising, Swollen glands Past Medical History - SOCIAL HISTORY Smoking Status: Former smoker Alcohol Use: None Drug Use: None - RESPIRATORY Hx Respiratory Disorders: Yes Hx COPD: Yes - CARDIOVASCULAR Hx Cardio Disorders: Yes Hx Abnormal EKG: Yes Hx CHF: Yes - NEURO Hx Neuro Disorders: No - GI Hx GI Disorders: No - Hx Genitourinary Disorders: No - ENDOCRINE Hx Endocrine Disorders: No - MUSCULOSKELETAL Hx Musculoskeletal Disorders: No - PSYCH Hx Psych Problems: No - HEMATOLOGY/ONCOLOGY Hx Hematology/Oncology Disorders: No Family Medical History Any Significant Family History?: Yes Physical Exam - General General Appearance: Alert, Oriented x3, Cooperative, No acute distress Limitations: No limitations - Head Head exam: Normal inspection - Eye Eye exam: Normal appearance. negative: Conjunctival injection - ENT ENT exam: Normal exam, Mucous membranes moist Ear exam: Normal external inspection Nasal Exam: Normal inspection Mouth exam: Normal external inspection - Neck Neck exam: Normal inspection, Full ROM. negative: Tenderness - Respiratory Respiratory exam: Normal lung sounds bilaterally. negative: Rales (The lungs are clear at this time. No rales. ), Respiratory distress, Rhonchi, Stridor, Wheezes - Cardiovascular Cardiovascular Exam: Regular rate, Normal rhythm, Normal heart sounds - GI/Abdominal GI/Abdominal exam: Soft. negative: Tenderness - Rectal Rectal exam: Deferred - exam: Deferred - Extremities Extremities exam: Joint swelling, Normal capillary refill, Pedal edema (trace bilateral. very minimal pretibial. No foot edeam), Tenderness (R great toe). negative: Normal inspection Image of Feet: 1 - thickened loose nail, rim of erythema and drained pus, mild swelling. Good CR. Intact DP pulses bilateral at 1-2+ equal. Feet are warm. No coolness or pallor - Back Back exam: Reports: Normal inspection - Neurological Neurological exam: Alert, Oriented X3 - Psychiatric Psychiatric exam: negative: Agitated, Anxious - Skin Skin exam: Erythema (Right great toe) Course Vital Signs 07/20/17 13:31 Temperature 98.4 F Pulse Rate 97 H Respiratory 18 Rate Blood Pressure 169/94 Pulse Ox 95 - Reevaluation(s) Reevaluation #1: The right great toe is warm, red, mild swelling with a nail that is nearly completely loose with chronic thickening and evidence of recent drainage. I offered to remove the nail given it will fall off soon anyway and to clear any drainage He will have an XR and be placed on antibiotics He has pulses that are palpable in both feet with warm feet with brisk cap refill 07/20/17 13:54 07/20/17 14:48 No acute changes on the XR. Degenerative changes noted, vascular calcifications. His foot is warm with a palpable pulses. No sign of acute arterial insufficiency or emboli. He had an ingrown nail with chronic changes with local infection Keflex provided. Labs reviewed. No acute changes He requests a new PCP referral in ER 07/20/17 18:03 Procedure: Nail removal Digital Block: Lidocaine 1% plain Betadine Prep The nail was only attached minimally at the base. The area was cleaned. No Pus. The area was dressed with non stick and topical antibiotics. RX provided for 7 days Medical Decision Making - Lab Data Result diagrams: 07/20/17 13:45 07/20/17 13:45 Disposition Disposition: Discharge Clinical Impression: Acute paronychia Nail avulsion of toe Qualifiers: Encounter type: initial encounter Qualified Code(s): S91.209A - Unspecified open wound of unspecified toe(s) with damage to nail, initial encounter Disposition: Home, Self-Care Condition: (1) Good Instructions: Paronychia (ED) Additional Instructions: Call for a new family doctor Return to the ED if worse, pus, fever or spreading redness Take the antibiotic until gone Clean the toe daily Try to keep from getting to wet or sweaty Prescriptions: Cephalexin [Keflex] 500 mg PO TID #21 cap Referrals: LAURA MARIE [DOCTOR OF PODIATRY MEDICINE] - KO MCGEE [MEDICAL DOCTOR] - [facility] Specialty Clinics [Provider Group] Forms: Patient Portal Access Time of Disposition: 14:51 Quality - Quality Measures Quality Measures: N/A - Blood Pressure Screening Does Patient Have Any of the Following: Active Dx of HTN Blood Pressure Classification: Hypertensive Reading Systolic Measurement: 169 Diastolic Measurement: 94 Screening for High Blood Pressure: Patient Exclusion, Hx of HTN [[id number]]
[2017-07-20 13:53] LABS: BASO % 0.3 % (0-6); EOS % 3.5 % (0-6); GRAN % 76.1 % (47-80); HEMATOCRIT 40.6 % (42.0-52.0); HEMOGLOBIN 13.9 gm/dl (14.0-18.0); MEAN CELL VOLUME 94.6 fl (81-97); MEAN CORPUSCULAR HEMOGLOBIN 32.4 pg (27-33); MEAN CORPUSCULAR HGB CONC 34.2 g/dl (32-36); MEAN PLATELET VOLUME 8.9 fl (7.4-10.4); MONO % 7.1 % (0-9); PLATELET COUNT 205 K/uL (130-400); RED BLOOD COUNT 4.29 M/uL (4.40-5.70); RED CELL DISTRIBUTION WIDTH 13.8 % (11.5-14.5); WHITE BLOOD COUNT W/O DIFF 6.1 K/uL (4.2-12.2)
[2017-07-20 14:20] LABS: ALB/GLOB RATIO 1.2 (1.1-1.8); ALBUMIN 4.4 g/dL (4.0-5.0); ALKALINE PHOSPHATASE 73 U/L (40-129); ALT/SGPT 30 U/L (<41); AST/SGOT 28 U/L (10.0-50.0); BLOOD UREA NITROGEN 21 mg/dL (8-23); CREATININE 1.1 mg/dL (0.7-1.2); EST GLOMERULAR FILTRATION RATE > 60 mL/min; GLUCOSE,RANDOM 133 mg/dL (74-109); TOTAL PROTEIN 8.2 g/dL (6.6-8.7)
[2017-07-20] MEDS ORDERED: CEPHALEXIN 500 MG CAPSULE PO STA (14:47)
--- NOTE | 2017-07-21 22:29 | RADIOLOGY REPORT ---
EXAM: TOES, RIGHT HISTORY: RIGHT GREAT TOE INFECTION, PAINFUL, NO KNOWN INJURY. TECHNIQUE: Three views right great toe. COMPARISON: None. FINDINGS: Mild degenerative arthritis is seen at the first MTP joint. There is probably some soft tissue swelling diffusely involving the great toe. However, no definite destructive lesion is seen. Tiny calcific density along the medial aspect of the first MTP joint appears chronic in nature. Some vascular calcification is present in the foot. IMPRESSION: 1. MILD DEGENERATIVE CHANGE AT THE FIRST MTP JOINT. 2. SMALL CALCIFIC DENSITY ALONG THE MEDIAL ASPECT OF THE FIRST MTP JOINT APPEARS CHRONIC. 3. DIFFUSE SOFT TISSUE SWELLING INVOLVING THE GREAT TOE. 4. SOME VASCULAR CALCIFICATION IN THE FOOT. JOB NUMBER: [id number] [facility]
== END 2017-07-20 15:14 | disposition home or self-care (01) ==
LOC: ER 13:27
DX: L60.0 Ingrowing nail (principal); L03.031 Cellulitis of right toe; I50.9 Heart failure, unspecified; I10 Essential (primary) hypertension; J44.9 Chronic obstructive pulmonary disease, unspecified; Z87.891 Personal history of nicotine dependence
CPT/HCPCS: 11750; 73660; 80053; 85025; 99283; 99284

== ENCOUNTER 2017-11-20 16:48 | Emergency (ER) | payer MEDICARE ==
[2017-11-20] MEDS ORDERED: METHYLPREDNISOLONE PF 125MG/VIAL IVP ONE (16:56)
[2017-11-20] MEDS ORDERED: IPRATROPIUM/ALBUTEROL (0.5MG/3MG) NEB INH ONE (16:56)
--- NOTE | 2017-11-20 16:59 | Emergency Department Record ---
History of Present Illness - General Chief Complaint: Shortness of breath Stated Complaint: BELGICA Time Seen by Provider: 11/20/17 16:55 Source: Patient Mode of Arrival: Ambulatory Limitations: No limitations - History of Present Illness Initial Comments: 77 yo male presents with cough, shortness of breath since 3am. He states he has had subjective fevers. His cough has been a little productive. No chest pain. He denies smoking. He is not on home oxygen. No edema. He has been dealing with an infected toes. He has been seen by podiatry at [facility] who has told him he will need a second opinion as this worsens. His foot and toes are more painful, some nail losses and oozing of the third toe. No calf pain or swelling. He has a history of CAD with CABG. Dr Santana is his cracker off. No nausea vomiting or diarrhea. MD Complaint: Cough, Shortness of breath -: Hour(s) (14) Radiation: Other Severity: Moderate Quality: Other Consistency: Constant Improves With: Rest Worsens With: Coughing, Movement Known History Of: COPD Context: Other Associated Symptoms: Cough Treatments Prior to Arrival: None - Related Data Allergies Allergy/AdvReac Type Severity Reaction Status Date / Time carvedilol Allergy DIFFICULTY Verified 11/20/17 17:01 BREATHING celecoxib [From Celebrex] Allergy JOINT ACHES Verified 11/20/17 17:01 clonidine Allergy HIVES Verified 11/20/17 17:01 clopidogrel [From Plavix] Allergy PT UNSURE Verified 11/20/17 17:01 OF REACTION hydralazine Allergy HYPERSENSIT Verified 11/20/17 17:01 IVITY lisinopril Allergy DIFFICULTY Verified 11/20/17 17:01 BREATHING losartan Allergy JOINT ACHES Verified 11/20/17 17:01 naproxen Allergy JOINT ACHES Verified 11/20/17 17:01 nebivolol Allergy SWELLING Verified 11/20/17 17:01 (GENERAL) olmesartan Allergy JOINT ACHES Verified 11/20/17 17:01 rofecoxib [From Vioxx] Allergy RAPID Verified 11/20/17 17:01 HEART RATE ibuprofen AdvReac PT UNSURE Verified 11/20/17 17:01 OF REACTION Review of Systems Constitutional: Denies: Chills, Fever, Malaise, Weakness Eyes: Denies: Eye discharge ENT: Denies: Congestion, Throat pain Respiratory: Reports: Cough, Dyspnea, Wheezes Cardiovascular: Denies: Chest pain, Palpitations, Syncope Endocrine: Denies: Fatigue Gastrointestinal: Denies: Abdominal pain, Diarrhea, Nausea, Vomiting Genitourinary: Denies: Dysuria, Frequency, Hematuria Musculoskeletal: Reports: Arthralgia (right foot, toe) Skin: Denies: Bruising, Change in color, Rash Neurological: Denies: Confusion Psychiatric: Denies: Anxiety Hematological/Lymphatic: Denies: Easy bleeding, Easy bruising Past Medical History - SOCIAL HISTORY Smoking Status: Former smoker Alcohol Use: None Drug Use: None - RESPIRATORY Hx Respiratory Disorders: Yes Hx COPD: Yes - CARDIOVASCULAR Hx Cardio Disorders: Yes Hx Abnormal EKG: Yes Hx CHF: Yes - NEURO Hx Neuro Disorders: No - GI Hx GI Disorders: No - Hx Genitourinary Disorders: No - ENDOCRINE Hx Endocrine Disorders: No - MUSCULOSKELETAL Hx Musculoskeletal Disorders: No - PSYCH Hx Psych Problems: No - HEMATOLOGY/ONCOLOGY Hx Hematology/Oncology Disorders: No Family Medical History Any Significant Family History?: No Physical Exam - General General Appearance: Alert, Oriented x3, Cooperative, No acute distress Limitations: No limitations - Head Head exam: Atraumatic, Normal inspection - Eye Eye exam: Normal appearance. negative: Conjunctival injection - ENT ENT exam: Normal exam, Mucous membranes moist Ear exam: Normal external inspection Nasal Exam: Normal inspection Mouth exam: Normal external inspection Teeth exam: Normal inspection - Neck Neck exam: Normal inspection, Full ROM. negative: Tenderness - Respiratory Respiratory exam: Accessory muscle use (mild), Decreased breath sounds, Prolonged expiratory (mild), Rhonchi, Wheezes. negative: Normal lung sounds bilaterally, Respiratory distress - Cardiovascular Cardiovascular Exam: Regular rate, Normal rhythm, Normal heart sounds Peripheral Pulses: 0: Dorsalis Pedis (R), 2+: Radial (R), Radial (L) - GI/Abdominal GI/Abdominal exam: Soft. negative: Tenderness - Rectal Rectal exam: Deferred - exam: Deferred - Extremities Extremities exam: negative: Normal inspection Image of Feet: 1 - erythema, tender, 2nd, 3rd and 4th toe with erythema, swelling, nail changes, 3rd with superfical skin changes erythema into the mid foot 2 - erythema - Back Back exam: Denies: CVA tenderness (R), CVA tenderness (L) - Neurological Neurological exam: Alert, Oriented X3 - Psychiatric Psychiatric exam: Normal affect, Normal mood. negative: Agitated, Anxious - Skin Skin exam: Dry, Erythema, Normal color, Warm Course - Reevaluation(s) Reevaluation #1: EKG 16:57 Rate 83 Rhythm Sinus [place] Left Intervals PA [address] ST poor R wave progression, NS changes. 11/20/17 17:15 No changes 09/26/16 11/20/17 17:17 11/20/17 17:56 The labs were reviewed No acute changes on the CBC, CMP with K of 5 Troponin is normal BNP is 1129 11/20/17 18:22 The CXR demonstrates on the lateral atelectasis vs infiltrate in the posterior base Given his cough and BELGICA this may represents a new pneumonia The foot XR demonstrates no osteo or bony necrosis. The single AP view suggests air in the toes but only seen on one view. 11/20/17 18:34 EMR on 08/23/17 demonstrated severe occlusive bilateral disease. No JANAY obtained. 11/20/17 18:39 No vascular or ortho at [facility] The patient requests transfer to [facility]. [facility] was contacted for transfer. Awaiting hospitalist call back 11/20/17 11/20/17 19:49 Dr Coffey of the [facility] Hospitalist accepts the patient COPD, Pneumonia, and severe PAD and the right foot infection. Medical Decision Making - Lab Data Result diagrams: 11/20/17 17:00 11/20/17 17:00 Disposition Disposition: Transfer Clinical Impression: Dyspnea, COPD (chronic obstructive pulmonary disease), Pneumonia, Peripheral arterial occlusive disease, Foot infection Decision to Admit Date: 11/20/17 Decision to Admit Time: 18:24 Transfer To: [facility] Reason For Transfer: COPD,Pneumonia,Foot infection,PAD Accepting Physician: DR Coffey Time Discussed w/Accepting Physician: 18:24 Condition: (2) Stable Forms: Patient Portal Access Time of Disposition: 18:24 Quality - Quality Measures Quality Measures: N/A - Blood Pressure Screening Does Patient Have Any of the Following: No Blood Pressure Classification: Pre-Hypertensive BP Reading Systolic Measurement: 146 Diastolic Measurement: 84 Screening for High Blood Pressure: < Pre-Hypertensive BP, F/U Documented > [ G8950] Pre-Hypertensive Follow-up Interventions: Referral to alternative/primary care provider.
[2017-11-20 17:07] LABS: BASO % 0.5 % (0-6); EOS % 3.1 % (0-6); GRAN % 76.2 % (47-80); HEMATOCRIT 44.3 % (42.0-52.0); HEMOGLOBIN 14.4 gm/dl (14.0-18.0); LYMPH % 11.7 % (16-45); MEAN CELL VOLUME 96.5 fl (81-97); MEAN CORPUSCULAR HEMOGLOBIN 31.4 pg (27-33); MEAN CORPUSCULAR HGB CONC 32.5 g/dl (32-36); MEAN PLATELET VOLUME 9.1 fl (7.4-10.4); MONO % 8.5 % (0-9); PLATELET COUNT 226 K/uL (130-400); RED BLOOD COUNT 4.59 M/uL (4.40-5.70); RED CELL DISTRIBUTION WIDTH 14.6 % (11.5-14.5); WHITE BLOOD COUNT W/O DIFF 7.5 K/uL (4.2-12.2)
[2017-11-20 17:17] LABS: BLOOD UREA NITROGEN 18 mg/dL (8-23); CREATININE 0.9 mg/dL (0.7-1.2); EST GLOMERULAR FILTRATION RATE > 60 mL/min
[2017-11-20 17:18] LABS: TOTAL PROTEIN 8.5 g/dL (6.6-8.7)
[2017-11-20 17:20] LABS: GLUCOSE,RANDOM 160 mg/dL (74-109); PARTIAL THROMBOPLASTIN TIME 29.6 SECONDS (24.5-39.1); PROTHROMBIN TIME (PATIENT) 10.3 SECONDS (9.5-12.1)
[2017-11-20 17:22] LABS: ALT/SGPT 30 U/L (<41)
[2017-11-20 17:23] LABS: ALB/GLOB RATIO 0.9 (1.1-1.8); ALBUMIN 4.1 g/dL (4.0-5.0); ALKALINE PHOSPHATASE 87 U/L (40-129); AST/SGOT 33 U/L (10.0-50.0)
[2017-11-20] MEDS ORDERED: ACETAMINOPHEN 1,000 MG/100 ML BTL IVPB ONE (17:55)
[2017-11-20] MEDS ORDERED: AZITHROMYCIN 500 MG TABLET PO ONE (18:21)
[2017-11-20] MEDS ORDERED: CEFTRIAXONE SODIUM 1 GM in 0.9 % SODIUM CHLORIDE 100ML 100 ML IVPB ONE (18:21)
[2017-11-20] MEDS ORDERED: HEPARIN SODIUM 1000 UNIT/1 ML 10ML VIAL IVP ONE (18:38)
[2017-11-20] MEDS ORDERED: AMPICILLIN SODIUM/SULBACTAM NA 3 G in 0.9 % SODIUM CHLORIDE 100ML 100 ML IVPB ONE (18:38)
[2017-11-20] MEDS ORDERED: HEPARIN SODIUM/D5W 25,000 UNITS/500 ML BAG IV SCH (18:45)
== END 2017-11-20 20:56 | disposition short-term general hospital (02) ==
LOC: ER 16:48
DX: J18.9 Pneumonia, unspecified organism (principal); J44.9 Chronic obstructive pulmonary disease, unspecified; I77.9 Disorder of arteries and arterioles, unspecified; L08.9 Local infection of the skin and subcutaneous tissue, unspecified; I50.9 Heart failure, unspecified; I25.10 Atherosclerotic heart disease of native coronary artery without angina pectoris; Z95.1 Presence of aortocoronary bypass graft; Z87.891 Personal history of nicotine dependence
CPT/HCPCS: 99285 ×2; 96365; 96366; 96375; 85025; 85730; 85610; 80053; 84484; 83880; 71046; 73630; 94640; 93005; 93010; J0295; J2930

== ENCOUNTER 2018-01-19 18:37 | Emergency (ER) | payer MEDICARE ==
--- NOTE | 2018-01-19 18:55 | Emergency Department Record ---
History of Present Illness - General Chief Complaint: Abdominal Pain Stated Complaint: ABD PAIN/BELGICA Time Seen by Provider: 01/19/18 18:50 Source: Patient Mode of Arrival: EMS Limitations: No limitations - History of Present Illness Initial Comments: 78 yo male presents to ED for evaluation of constipation symptoms this evening. Patient reports that he attempted to use the restroom x 3 today without a BM, reports a history of previous symptoms usually improved with MOM. Patient did take MOM tonight without relief. Patient denies nausea/vomiting symptoms, but does reports SOB resulting from "going up and son the stairs to the bathroom" which has aggravated his COPD. Patient denies fevers, chills, or productive cough symptoms. MD Complaint: Abdominal pain Onset/Timin -: Days(s) Location: Diffuse Radiation: None Migration to: No migration Quality: Cramping Consistency: Constant Improves With: Nothing Worsens With: Nothing Associated Symptoms: Denies other symptoms - Related Data Home Medications Medication Instructions Recorded Confirmed Last Taken Clopidogrel Bisulfate [Plavix] 75 mg PO DAILY 01/19/18 01/19/18 01/19/18 Hydrocodone/Acetaminophen 2 each PO QHS 01/19/18 01/19/18 01/18/18 [Hydrocodone-Acetamin 10-325 mg] Hydrocodone/Acetaminophen 2 each PO QAM 01/19/18 01/19/18 01/19/18 [Hydrocodone-Acetamin 5-325 mg] Allergies Allergy/AdvReac Type Severity Reaction Status Date / Time carvedilol Allergy DIFFICULTY Verified 11/20/17 17:01 BREATHING celecoxib [From Celebrex] Allergy JOINT ACHES Verified 11/20/17 17:01 clonidine Allergy HIVES Verified 11/20/17 17:01 hydralazine Allergy HYPERSENSIT Verified 11/20/17 17:01 IVITY lisinopril Allergy DIFFICULTY Verified 11/20/17 17:01 BREATHING losartan Allergy JOINT ACHES Verified 11/20/17 17:01 naproxen Allergy JOINT ACHES Verified 11/20/17 17:01 nebivolol Allergy SWELLING Verified 11/20/17 17:01 (GENERAL) olmesartan Allergy JOINT ACHES Verified 11/20/17 17:01 rofecoxib [From Vioxx] Allergy RAPID Verified 11/20/17 17:01 HEART RATE ibuprofen AdvReac PT UNSURE Verified 11/20/17 17:01 OF REACTION Review of Systems Constitutional: Denies: Chills, Fever, Malaise, Night sweats Eyes: Denies: Eye discharge, Eye pain ENT: Denies: Congestion, Ear pain, Epistaxis Respiratory: Reports: Dyspnea. Denies: Cough Cardiovascular: Denies: Chest pain, Dyspnea on exertion Endocrine: Denies: Fatigue, Heat or cold intolerance Gastrointestinal: Reports: Abdominal pain, Constipation. Denies: Nausea, Vomiting Genitourinary: Denies: Incontinence, Retention Musculoskeletal: Denies: Arthralgia, Back pain Skin: Denies: Bruising, Change in color Neurological: Denies: Abnormal gait, Confusion, Headache, Seizure Psychiatric: Denies: Anxiety Hematological/Lymphatic: Denies: Anemia, Blood Clots Past Medical History - SOCIAL HISTORY Smoking Status: Former smoker Drug Use: None - RESPIRATORY Hx Respiratory Disorders: Yes Hx COPD: Yes - CARDIOVASCULAR Hx Cardio Disorders: Yes Hx Abnormal EKG: Yes Hx CHF: Yes - NEURO Hx Neuro Disorders: No - GI Hx GI Disorders: No - Hx Genitourinary Disorders: No - ENDOCRINE Hx Endocrine Disorders: No - MUSCULOSKELETAL Hx Musculoskeletal Disorders: No - PSYCH Hx Psych Problems: No - HEMATOLOGY/ONCOLOGY Hx Hematology/Oncology Disorders: No Physical Exam - General General Appearance: Alert, Oriented x3, Cooperative, Mild distress Limitations: No limitations - Head Head exam: Atraumatic, Normocephalic, Normal inspection Head exam detail: negative: Abrasion, Contusion, South's sign, General tenderness, Hematoma, Laceration - Eye Eye exam: Normal appearance. negative: Conjunctival injection, Periorbital swelling, Periorbital tenderness, Scleral icterus - ENT Ear exam: negative: Auricular hematoma, Auricular trauma Nasal Exam: negative: Active bleeding, Discharge, Dried blood, Foreign body Mouth exam: negative: Drooling, Laceration, Muffled voice, Tongue elevation - Neck Neck exam: Normal inspection. negative: Meningismus, Tenderness - Respiratory Respiratory exam: Normal lung sounds bilaterally. negative: Rales, Respiratory distress, Rhonchi, Stridor - Cardiovascular Cardiovascular Exam: Regular rate, Normal rhythm, Normal heart sounds - GI/Abdominal GI/Abdominal exam: Soft, Other (Abdominal examination is benign on exam, no pain with palpation.). negative: Rebound, Rigid, Tenderness - Rectal Rectal exam: Deferred - exam: Deferred - Extremities Extremities exam: Other (Chronic vascular changes to the RLE with necrosis to the 2nd/3rd toes, chronic per family.). negative: Pedal edema, Tenderness - Back Back exam: Denies: CVA tenderness (R), CVA tenderness (L) - Neurological Neurological exam: Alert, Normal gait, Oriented X3 - Psychiatric Psychiatric exam: Normal affect, Normal mood - Skin Skin exam: Normal color. negative: Abrasion Type of lesion: negative: abrasion Course - Reevaluation(s) Reevaluation #1: 01/19/18 19:31 Laboratory studies were reviewed and are grossly unremarkable for an acute process. Reevaluation #2: 01/19/18 19:47 Patient is back from radiology (awaiting interpretation) Patient has had a large BM while waiting as well, reports that he is feeling much improved. Reevaluation #3: 01/19/18 19:57 AAS: No acute intra-thoracic process Constipation rectal vault Patient and family members were updated on all results, recommended OTC stool softener for constipation symptoms. Family reports that they have stool softener at home, recommended daily use. Patient is otherwise well appearing and stable for discharge at this time with family. Medical Decision Making - Lab Data Result diagrams: 01/19/18 Unknown 01/19/18 Unknown Disposition Disposition: Discharge Clinical Impression: Constipation Qualifiers: Constipation type: unspecified constipation type Qualified Code(s): K59.00 - Constipation, unspecified COPD (chronic obstructive pulmonary disease) Qualifiers: COPD type: unspecified COPD Qualified Code(s): J44.9 - Chronic obstructive pulmonary disease, unspecified Disposition: Home, Self-Care Condition: (2) Stable Instructions: Constipation (ED) Additional Instructions: Return to ED if your symptoms worsen or if you have any concerns. Follow-up with your family doctor in 3-5 days as directed. Stool softener daily. Forms: Patient Portal Access Time of Disposition: 19:59 Quality - Quality Measures Quality Measures: N/A - Blood Pressure Screening Does Patient Have Any of the Following: Active Dx of HTN Blood Pressure Classification: Hypertensive Reading Systolic Measurement: 176 Diastolic Measurement: 91 Screening for High Blood Pressure: Patient Exclusion, Hx of HTN [G9744]
[2018-01-19 19:05] LABS: BASO % 0.3 % (0-6); EOS % 1.8 % (0-6); GRAN % 80.3 % (47-80); HEMATOCRIT 41.6 % (42.0-52.0); HEMOGLOBIN 13.3 gm/dl (14.0-18.0); LYMPH % 8.7 % (16-45); MEAN CELL VOLUME 95.4 fl (81-97); MEAN CORPUSCULAR HEMOGLOBIN 30.5 pg (27-33); MEAN PLATELET VOLUME 9.3 fl (7.4-10.4); MONO % 8.9 % (0-9); PLATELET COUNT 300 K/uL (130-400); RED BLOOD COUNT 4.36 M/uL (4.40-5.70); RED CELL DISTRIBUTION WIDTH 15.3 % (11.5-14.5); WHITE BLOOD COUNT W/O DIFF 7.6 K/uL (4.2-12.2)
[2018-01-19 19:15] LABS: BLOOD UREA NITROGEN 14 mg/dL (8-23); CREATININE 0.9 mg/dL (0.7-1.2); EST GLOMERULAR FILTRATION RATE > 60 mL/min
[2018-01-19 19:16] LABS: TOTAL PROTEIN 8.4 g/dL (6.6-8.7)
[2018-01-19 19:18] LABS: GLUCOSE,RANDOM 147 mg/dL (74-109)
[2018-01-19 19:21] LABS: ALB/GLOB RATIO 0.9 (1.1-1.8); ALBUMIN 3.9 g/dL (4.0-5.0); ALKALINE PHOSPHATASE 86 U/L (40-129); ALT/SGPT 24 U/L (<41); AST/SGOT 32 U/L (10.0-50.0)
--- NOTE | 2018-01-21 09:07 | RADIOLOGY REPORT ---
EXAM: ACUTE ABDOMEN, SERIES HISTORY: PATIENT HAS CONSTIPATION. TECHNIQUE: AP view of the chest and multiple views of the abdomen are provided along with CT scan of the abdomen and pelvis dated 09/25/16. FINDINGS: Elevated right hemidiaphragm is again noted. Post sternotomy changes are identified. Cardiomegaly is again noted. Passive atelectasis at the right lung base is again identified. No new focal infiltrates, pleural effusion or pneumothorax is noted. Postoperative changes of the left shoulder are identified. The bowel gas pattern is nonspecific and nonobstructive. Moderate stool burden is noted throughout the large bowel. The rectal stool vault is identified. These findings may represent constipation. There is no radiographic evidence of free intraperitoneal air. Advanced degenerative disk disease of the lumbar spine is noted. IMPRESSION: 1. STABLE RADIOGRAPHIC APPEARANCE OF THE CHEST WITH RESPECT TO THE PRIOR EXAMINATION. 2. ELEVATED RIGHT HEMIDIAPHRAGM IS UNCHANGED. 3. MODERATE STOOL BURDEN IS NOTED THROUGHOUT THE LARGE BOWEL. THE RECTAL STOOL VAULT IS NOTED. THESE FINDINGS MAY REPRESENT CONSTIPATION. JOB NUMBER: [id number] [facility]
== END 2018-01-19 20:20 | disposition home or self-care (01) ==
LOC: ER 18:37
DX: K59.00 Constipation, unspecified (principal); R06.02 Shortness of breath; J44.9 Chronic obstructive pulmonary disease, unspecified; I10 Essential (primary) hypertension; Z87.891 Personal history of nicotine dependence
CPT/HCPCS: 74022; 80053; 85025; 99283; 99284

== ENCOUNTER 2018-02-05 16:38 | Emergency (ER) | payer MEDICARE ==
[2018-02-05] MEDS ORDERED: MORPHINE SULFATE 10 MG/ML VIAL IVP ONE ×2 (17:12→18:19)
[2018-02-05 17:33] LABS: BASO % 0.3 % (0-6); GRAN % 75.8 % (47-80); HEMATOCRIT 36.1 % (42.0-52.0); HEMOGLOBIN 11.8 gm/dl (14.0-18.0); LYMPH % 10.4 % (16-45); MEAN CORPUSCULAR HEMOGLOBIN 31.3 pg (27-33); MEAN CORPUSCULAR HGB CONC 32.7 g/dl (32-36); MEAN PLATELET VOLUME 8.3 fl (7.4-10.4); MONO % 11.5 % (0-9); PLATELET COUNT 379 K/uL (130-400); RED BLOOD COUNT 3.76 M/uL (4.40-5.70); RED CELL DISTRIBUTION WIDTH 15.3 % (11.5-14.5); WHITE BLOOD COUNT W/O DIFF 8.8 K/uL (4.2-12.2)
--- NOTE | 2018-02-05 17:39 | Emergency Department Record ---
History of Present Illness - General Chief complaint: Extremity Problem Stated complaint: RT LEG PAIN/SWELLING Time Seen by Provider: 02/05/18 17:08 Source: Patient, Family Mode of Arrival: Wheelchair Limitations: No limitations - History of Present Illness Initial comments: pt comes in for pain in r leg. he had stents placed in his leg in [place] 01/28. since then he has increased pain in his leg and foot as well as increased swelling, erythema and increased blackening of the toes. MD Complaint: Extremity pain, Extremity swelling Onset/Timin -: Days(s) Location: Right, Lower Leg History of Same: Yes Severity scale (1-10): 10 Quality: Sharp Consistency: Constant Improves with: Nothing Worsens with: Weight bearing Associated Symptoms: Denies other symptoms - Related Data Allergies Allergy/AdvReac Type Severity Reaction Status Date / Time carvedilol Allergy DIFFICULTY Verified 11/20/17 17:01 BREATHING celecoxib [From Celebrex] Allergy JOINT ACHES Verified 11/20/17 17:01 clonidine Allergy HIVES Verified 11/20/17 17:01 hydralazine Allergy HYPERSENSIT Verified 11/20/17 17:01 IVITY lisinopril Allergy DIFFICULTY Verified 11/20/17 17:01 BREATHING losartan Allergy JOINT ACHES Verified 11/20/17 17:01 naproxen Allergy JOINT ACHES Verified 11/20/17 17:01 nebivolol Allergy SWELLING Verified 11/20/17 17:01 (GENERAL) olmesartan Allergy JOINT ACHES Verified 11/20/17 17:01 rofecoxib [From Vioxx] Allergy RAPID Verified 11/20/17 17:01 HEART RATE ibuprofen AdvReac PT UNSURE Verified 11/20/17 17:01 OF REACTION Travel Screening - Travel/Exposure Within Last 30 Days Have you traveled within the last 30 days?: No Review of Systems Reviewed: No additional complaints except as noted below Constitutional: Reports: As per HPI. Denies: Chills, Fever, Malaise, Night sweats, Weakness, Weight change Eyes: Reports: As per HPI. Denies: Eye discharge, Eye pain, Photophobia, Vision change ENT: Reports: As per HPI. Denies: Congestion, Dental pain, Ear pain, Epistaxis , Hearing loss, Throat pain Respiratory: Reports: As per HPI. Denies: Cough, Dyspnea, Hemoptysis, Stridor, Wheezes Cardiovascular: Reports: As per HPI. Denies: Arrhythmia, Chest pain, Dyspnea on exertion, Edema, Murmurs, Orthopnea, Palpitations, Paroxysmal nocturnal dyspnea, Rheumatic Fever, Syncope Endocrine: Reports: As per HPI. Denies: Fatigue, Heat or cold intolerance, Polydipsia, Polyuria Gastrointestinal: Reports: As per HPI. Denies: Abdominal pain, Constipation, Diarrhea, Hematemesis, Hematochezia, Melena, Nausea, Vomiting Genitourinary: Reports: As per HPI. Denies: Dysuria, Frequency, Hematuria, Incontinence, Retention, Testicular pain, Testicular mass, Urgency Musculoskeletal: Reports: As per HPI. Denies: Arthralgia, Back pain, Gout, Joint swelling, Myalgia, Neck pain Skin: Reports: As per HPI. Denies: Bruising, Change in color, Change in hair/ nails, Lesions, Pruritus, Rash Neurological: Reports: As per HPI. Denies: Abnormal gait, Confusion, Headache, Numbness, Paresthesias, Seizure, Tingling, Tremors, Vertigo, Weakness Psychiatric: Reports: As per HPI. Denies: Anxiety, Auditory hallucinations, Depression, Homicidal thoughts, Suicidal thoughts, Visual hallucinations Hematological/Lymphatic: Reports: As per HPI. Denies: Anemia, Blood Clots, Easy bleeding, Easy bruising, Swollen glands Past Medical History - SOCIAL HISTORY Smoking Status: Former smoker - RESPIRATORY Hx Respiratory Disorders: Yes Hx COPD: Yes - CARDIOVASCULAR Hx Cardio Disorders: Yes Hx Abnormal EKG: Yes Hx CHF: Yes Comment:: CAD - NEURO Hx Neuro Disorders: No - GI Hx GI Disorders: No Comment:: constipation - Hx Genitourinary Disorders: No - ENDOCRINE Hx Endocrine Disorders: No - MUSCULOSKELETAL Hx Musculoskeletal Disorders: No - PSYCH Hx Psych Problems: No - HEMATOLOGY/ONCOLOGY Hx Hematology/Oncology Disorders: No Family Medical History Any Significant Family History?: No Physical Exam - General General Appearance: Alert, Oriented x3, Cooperative, Moderate distress - Head Head exam: Normal inspection - Eye Eye exam: Normal appearance, PERRL, EOMI Pupils: Normal accommodation - ENT ENT exam: Normal exam, Mucous membranes moist, Normal external ear exam, Normal orophraynx Ear exam: Normal external inspection. negative: External canal tenderness Nasal Exam: Normal inspection. negative: Discharge, Sinus tenderness Mouth exam: Normal external inspection, Tongue normal Teeth exam: Normal inspection. negative: Dental caries Throat exam: Normal inspection. negative: Tonsillar erythema, Tonsillar exudate - Neck Neck exam: Normal inspection, Full ROM. negative: Tenderness - Respiratory Respiratory exam: Normal lung sounds bilaterally. negative: Respiratory distress - Cardiovascular Cardiovascular Exam: Regular rate, Normal rhythm, Normal heart sounds - GI/Abdominal GI/Abdominal exam: Soft, Normal bowel sounds. negative: Tenderness - Rectal Rectal exam: Deferred - exam: Deferred - Extremities Extremities exam: Calf tenderness, Tenderness Image of Feet: 1 - swelling, erythema, tenderness 2 - blackening odorous toes - Back Back exam: Reports: Normal inspection, Full ROM. Denies: Muscle spasm, Rash noted, Tenderness - Neurological Neurological exam: Alert, Normal gait, Oriented X3, Reflexes normal - Psychiatric Psychiatric exam: Normal affect, Normal mood - Skin Skin exam: Dry, Intact, Normal color, Warm Course Vital Signs 02/05/18 16:55 Temperature 97.9 F Pulse Rate 80 Respiratory 20 Rate Blood Pressure 200/83 Pulse Ox 96 - Reevaluation(s) Reevaluation #1: 02/05/18 17:42 family states foot looks much worse Reevaluation #2: 02/05/18 19:28 pt d/w dr cornell Medical Decision Making - Lab Data Result diagrams: 02/05/18 17:20 02/05/18 17:20 Disposition Disposition: Transfer Clinical Impression: Peripheral arterial occlusive disease, Gangrene of right foot Disposition: Acute Care Hospital Transfer Transfer To: [facility] Reason For Transfer: needs vascular surgeon Accepting Physician: dr cornell Time Discussed w/Accepting Physician: 19:30 Forms: Patient Portal Access Quality - Quality Measures Quality Measures: N/A - Blood Pressure Screening Does Patient Have Any of the Following: Active Dx of HTN Blood Pressure Classification: Pre-Hypertensive BP Reading Systolic Measurement: 200 Diastolic Measurement: 83 Screening for High Blood Pressure: Patient Exclusion, Hx of HTN [G9744]
[2018-02-05 17:41] LABS: BLOOD UREA NITROGEN 18 mg/dL (8-23); CREATININE 0.9 mg/dL (0.7-1.2); EST GLOMERULAR FILTRATION RATE > 60 mL/min
[2018-02-05 17:44] LABS: GLUCOSE,RANDOM 104 mg/dL (74-109)
[2018-02-05] MEDS ORDERED: CLINDAMYCIN 600MG/50ML PREMIX 600 MG/50 ML BAG IVPB ONE (18:47)
[2018-02-05] MEDS ORDERED: HYDROMORPHONE HCL 2 MG/ML VIAL IVP ONE (19:30)
--- NOTE | 2018-02-06 13:31 | RADIOLOGY REPORT ---
EXAM: RIGHT FOOT HISTORY: RECENT VASCULAR PROCEDURE. HAS PAIN. TECHNIQUE: Two views of the right foot were obtained. Comparison: Right foot x-rays 11/20/17. Encounter: Initial. FINDINGS: Two views of the right foot show intact bony structures, no fractures or bone lesions. No soft tissue abnormalities. Vascular calcifications are again seen. IMPRESSION: NO ACUTE ABNORMALITY IS SEEN IN THE RIGHT FOOT. JOB NUMBER: [id number] [facility]
--- NOTE | 2018-02-06 13:34 | US VENOUS DOPPLER REPORT ---
EXAM: RIGHT LOWER EXTREMITY DUPLEX DOPPLER HISTORY: PAIN. TECHNIQUE: Comparison: None recent. FINDINGS: The common femoral, femoral, and popliteal veins are visualized and have normal color flow and compressibility. Color flow is also seen in the calf veins. Normal waveform in the common femoral vein. IMPRESSION: NO EVIDENCE OF DEEP VEIN THROMBOSIS OF THE RIGHT LOWER EXTREMITY. JOB NUMBER: [id number] [facility]
--- NOTE | 2018-02-06 13:42 | US UNI ARTERIAL DOPPLER REPORT ---
EXAM: DUPLEX DOPPLER ARTERIAL OF RIGHT LOWER EXTREMITY HISTORY: BILATERAL LOWER EXTREMITY PAIN, DECREASED PERFUSION IN THE RIGHT FOOT. PATIENT HAD RECENT ARTERIAL STENTING IN THE RIGHT LOWER EXTREMITY. TECHNIQUE: Vergara scale and Duplex Doppler imaging of the right lower extremity arteries was performed. The ankle brachial indices were also obtained. Comparison: Bilateral lower extremity arterial exam 08/23/17, severely abnormal arterial flow in both lower extremities. FINDINGS: Right brachial index: 0.07, moderate insufficiency. Left ankle brachial index: 0.3, severe arterial insufficiency. Abnormal waveforms throughout the right lower extremity with monophasic waveforms below the knee. The peroneal artery is not identified. The left lower extremity is imaged for comparison and also shows severely abnormal waveforms beginning in the superficial femoral artery. Waveforms in the calf vessels are severe dampened. IMPRESSION: SEVERE BILATERAL LOWER ARTERIAL INSUFFICIENCY, LEFT MORE THAN RIGHT. JOB NUMBER: [id number] [facility]
== END 2018-02-05 20:45 | disposition short-term general hospital (02) ==
LOC: ER 16:38
DX: I70.261 Atherosclerosis of native arteries of extremities with gangrene, right leg (principal); I50.9 Heart failure, unspecified; J44.9 Chronic obstructive pulmonary disease, unspecified; I25.10 Atherosclerotic heart disease of native coronary artery without angina pectoris; Z87.891 Personal history of nicotine dependence
CPT/HCPCS: 99285 ×2; 96376; 96365; 96375; 85025; 80048; 73630; 93971; 93926; J1170; J2270